=== PATIENT | female | born 1985 | race Caucasian/White ===

== ENCOUNTER 2017-08-03 15:03 | Emergency (ER) | payer OTHER ==
[~2017-08-03] VITALS: Ht 172.7 cm; Wt 104.3 kg
[2017-08-03] MEDS ORDERED: ONDANSETRON PF 4 MG/2 ML VIAL. IV ONE (15:30)
[2017-08-03] MEDS ORDERED: fentaNYL PF VIAL 100 MCG/2 ML VIAL IV ONE (15:30)
[2017-08-03] MEDS ORDERED: KETOROLAC 30 MG/ML INJ. IV ONE (15:30)
[2017-08-03] MEDS ORDERED: IV NORMAL SALINE 1000ML BAG 1,000 ML IV ONE (15:30)
--- NOTE | 2017-08-03 15:33 | PHYS DOC ---
Past Medical History Past Medical History: Migraines, Other Additional Past Medical Histor: 2 herniated lumbar discs Past Surgical History: No Surgical History Alcohol Use: None Drug Use: None Adult General Chief Complaint Chief Complaint: FLANK PAIN HPI HPI Patient is a 31 year old female presenting to the emergency department for evaluation of right flank pain relating to right upper quadrant that started suddenly at approximately noon. The patient says that the pain is sharp and causes her nausea but no vomiting dysuria hematuria diarrhea constipation vaginal bleeding or vaginal discharge. She denies ever being diagnosed with a kidney stone in the past but has had pain similar to this that went away on its own but did not see anyone for it. Patient appears uncomfortable but is nontoxic. Review of Systems Review of Systems Constitutional: Denies fever or chills [] Eyes: Denies change in visual acuity, redness, or eye pain [] HENT: Denies nasal congestion or sore throat [] Respiratory: Denies cough or shortness of breath [] Cardiovascular: No additional information not addressed in HPI [] GI: + abdominal pain, nausea. No vomiting, bloody stools or diarrhea [] : Denies dysuria or hematuria [] Musculoskeletal: + back pain. No joint pain [] Integument: Denies rash or skin lesions [] Neurologic: Denies headache, focal weakness or sensory changes [] Current Medications Current Medications Current Medications Medications (Trade) Dose Ordered Sig/Manuel Start Time Stop Time Status Last Admin Dose Admin Fentanyl Citrate (Fentanyl 2ml Vial) 75 mcg 1X ONCE 08/03/17 15:30 08/03/17 15:31 DC 08/03/17 15:44 75 MCG Ketorolac Tromethamine (Toradol) 30 mg 1X ONCE 08/03/17 15:30 08/03/17 15:31 DC 08/03/17 15:47 30 MG Ondansetron HCl (Zofran) 8 mg 1X ONCE 08/03/17 15:30 08/03/17 15:31 DC 08/03/17 15:42 8 MG Oxycodone/ Acetaminophen (Percocet 5/325) 2 tab 1X ONCE 08/03/17 18:45 08/03/17 18:46 DC Sodium Chloride 1,000 ml @ 1,000 mls/hr 1X ONCE 08/03/17 15:30 08/03/17 16:29 DC 08/03/17 15:40 1,000 MLS/HR Allergies Allergies Allergies Coded Allergies Type Severity Reaction Last Updated Verified Penicillins Allergy Intermediate RASH 08/03/17 Yes Sulfa (Sulfonamide Antibiotics) Allergy Intermediate RASH 08/03/17 Yes cephalexin Allergy Intermediate RASH 08/03/17 Yes Physical Exam Physical Exam Constitutional: Well developed, well nourished, no acute distress, non-toxic appearance. [] HENT: Normocephalic, atraumatic, bilateral external ears normal, oropharynx moist, no oral exudates, nose normal. [] Eyes: PERRLA, EOMI, conjunctiva normal, no discharge. [] Neck: Normal range of motion, no tenderness, supple, no stridor. [] Cardiovascular:Heart rate regular rhythm, no murmur [] Lungs & Thorax: Bilateral breath sounds clear to auscultation [] Abdomen: Bowel sounds normal, soft, + RUQ tenderness, no masses, no pulsatile masses. [] Skin: Warm, dry, no erythema, no rash. [] Back: No tenderness, + R CVA tenderness. [] Extremities: No tenderness, no cyanosis, no clubbing, ROM intact, no edema. [] Neurologic: Alert and oriented X 3, normal motor function, normal sensory function, no focal deficits noted. [] Current Patient Data Vital Signs Vital Signs Date Time Temp Pulse Resp B/P (MAP) Pulse Ox O2 Delivery O2 Flow Rate FiO2 08/03/17 17:00 68 17 133/83 (100) 99 Room Air 08/03/17 15:13 97.6 97.6 Lab Values Laboratory Tests Test 08/03/17 15:28 08/03/17 15:30 White Blood Count 10.1 x10^3/uL (4.0-11.0) Red Blood Count 4.83 x10^6/uL (3.50-5.40) Hemoglobin 15.2 g/dL (12.0-15.5) Hematocrit 43.9 % (36.0-47.0) Mean Corpuscular Volume 91 fL (79-100) Mean Corpuscular Hemoglobin 32 pg (25-35) Mean Corpuscular Hemoglobin Concent 35 g/dL (31-37) Red Cell Distribution Width 12.1 % (11.5-14.5) Platelet Count 306 x10^3/uL (140-400) Neutrophils (%) (Auto) 54 % (31-73) Lymphocytes (%) (Auto) 39 % (24-48) Monocytes (%) (Auto) 5 % (0-9) Eosinophils (%) (Auto) 2 % (0-3) Basophils (%) (Auto) 1 % (0-3) Neutrophils # (Auto) 5.4 x10^3uL (1.8-7.7) Lymphocytes # (Auto) 3.9 x10^3/uL (1.0-4.8) Monocytes # (Auto) 0.5 x10^3/uL (0.0-1.1) Eosinophils # (Auto) 0.2 x10^3/uL (0.0-0.7) Basophils # (Auto) 0.1 x10^3/uL (0.0-0.2) Urine Color Yellow Urine Clarity Clear Urine pH 6.0 Urine Specific [place] 1.015 Urine Protein Negative mg/dL (NEG-TRACE) Urine Glucose (UA) Negative mg/dL (NEG) Urine Ketones (Stick) Negative mg/dL (NEG) Urine Blood Negative (NEG) Urine Nitrite Negative (NEG) Urine Bilirubin Negative (NEG) Urine Urobilinogen Dipstick 0.2 mg/dL (0.2 mg/dL) Urine Leukocyte Esterase Negative (NEG) Urine RBC 0 /HPF (0-2) Urine WBC Occ /HPF (0-4) Urine Squamous Epithelial Cells Occ /LPF Urine Bacteria Few /HPF (0-FEW) Urine Mucus Mod /LPF Sodium Level 141 mmol/L (136-145) Potassium Level 4.1 mmol/L (3.5-5.1) Chloride Level 105 mmol/L (98-107) Carbon Dioxide Level 26 mmol/L (21-32) Anion Gap 10 (6-14) Blood Urea Nitrogen 17 mg/dL (7-20) Creatinine 1.0 mg/dL (0.6-1.0) Estimated GFR (Cockcroft-Gault) 65.1 BUN/Creatinine Ratio 17 (6-20) Glucose Level 141 mg/dL (70-99) H Calcium Level 9.2 mg/dL (8.5-10.1) Total Bilirubin 0.3 mg/dL (0.2-1.0) Aspartate Amino Transferase (AST) 25 U/L (15-37) Alanine Aminotransferase (ALT) 26 U/L (14-59) Alkaline Phosphatase 78 U/L (46-116) Total Protein 7.5 g/dL (6.4-8.2) Albumin 3.8 g/dL (3.4-5.0) Albumin/Globulin Ratio 1.0 (1.0-1.7) Lipase 480 U/L (73-393) H POC Urine HCG, Qualitative Hcg negative (Negative) Laboratory Tests 08/03/17 15:28 Laboratory Tests 08/03/17 15:28 EKG EKG [] Radiology/Procedures Radiology/Procedures Examination: CT of the abdomen pelvis without contrast History: history of sudden onset of flank pain Comparison: None available Technique: Axial CT images of the abdomen pelvis were performed without contrast. Coronal and sagittal reformats are performed PQRS Compliance Statement: One or more of the following individualized dose reduction techniques were utilized for this examination: 1. Automated exposure control 2. Adjustment of the mA and/or kV according to patient size 3. Use of iterative reconstruction technique Findings: The visualized bibasal lungs grossly appears unremarkable. No evidence of free air identified in the abdomen. The evaluation of the solid organs is limited due to lack of IV contrast. The evaluation of the the bowel is limited due to lack of oral contrast. The visualized noncontrasted liver, spleen, adrenals grossly appears unremarkable. The gallbladder is mildly distended. The stomach is mildly distended. The visualized pancreas grossly appears unremarkable. The small bowel is nondilated. The appendix is normal. Feces and gas noted throughout the colon. Urinary bladder is mildly distended. No evidence of intrarenal collecting system calculi or hydronephrosis. Circumaortic left renal vein. No evidence of lytic bony destructive lesion. Impression: 1. No evidence of intrarenal collecting system calculus or hydronephrosis. 2. Normal-appearing appendix. 3. Mildly distended gallbladder. DICTATED and SIGNED BY: ERICK MARKHAM MD DATE: 08/03/17 1603 ABDOMEN LTD dated 08/03/2017 5:39 PM. Comparison: None Clinical Indication: Right upper quadrant pain . Findings: The liver is homogeneous in echotexture with no evidence of focal hepatic mass. Intrahepatic and extra hepatic biliary ducts are normal in caliber. The common bile duct measures 4 mm. Echogenic shadowing foci within the gallbladder lumen. No gallbladder wall thickening or pericholecystic fluid. Right kidney measures 11.1 cm in length. No hydronephrosis. Left kidney was not imaged. Limited visualized portions of pancreas aorta and IVC unremarkable. No significant ascites. IMPRESSION: Cholelithiasis with no secondary signs of acute cholecystitis. Electronically signed by: Miguel Angel Pruett MD (08/03/2017 6:16 PM) [facility] DICTATED and SIGNED BY: MIGUEL ANGEL PRUETT MD DATE: 08/03/171809 Course & Med Decision Making Course & Med Decision Making Symptoms are likely a similar to a stone however she does have some right upper quadrant pain so we'll check liver enzymes as well get CT treat symptoms and reassess. CT essentially negative except for a distended gallbladder. Ultrasound showed gallbladder stones so essentially her pain is attributed to a biliary colic. Labs are all normal and her pain is much better with no nausea vomiting. I do not think that she needs emergent surgery at this point so will discharge with surgical consult pain and nausea medications told to return for worsening pain fevers vomiting or other general concerns. Patient aware and agreeable with plan and verbalized understanding of the above instructions. Dragon Disclaimer Dragon Disclaimer This electronic medical record was generated, in whole or in part, using a voice recognition dictation system. Departure Departure Impression: Primary Impression: Biliary colic Disposition: 01 HOME, SELF-CARE Condition: STABLE Referrals: MARCELINO HICKEY MD Patient Instructions: Biliary Colic Scripts Ondansetron (ZOFRAN ODT) 4 Mg Tab.rapdis 4 MG PO BID Y for NAUSEA/VOMITING, #14 TAB Prov: CHELSEY SHAW DO 08/03/17 Oxycodone/Apap 5-325 (PERCOCET 5-325 MG TABLET) 1 Each Tablet 1 TAB PO PRN Q6HRS Y for PAIN, #20 TAB 0 Refills Prov: CHELSEY SHAW DO 08/03/17 CHELSEY SHAW DO Aug 03, 2017 15:33
[2017-08-03 15:37] LABS: BASO # 0.1 x10^3/uL (0.0-0.2); BASO % 1 % (0-3); EOS % 2 % (0-3); HEMATOCRIT 43.9 % (36.0-47.0); HEMOGLOBIN 15.2 g/dL (12.0-15.5); LYMPH # 3.9 x10^3/uL (1.0-4.8); LYMPH % 39 % (24-48); MEAN CORPUSCULAR HEMOGLOBIN 32 pg (25-35); MEAN CORPUSCULAR HGB CONC 35 g/dL (31-37); MEAN CORPUSCULAR VOLUME 91 fL (79-100); MONO % 5 % (0-9); NEUT % 54 % (31-73); PLATELET COUNT 306 x10^3/uL (140-400); RED BLOOD COUNT 4.83 x10^6/uL (3.50-5.40); RED CELL DISTRIBUTION WIDTH 12.1 % (11.5-14.5); WHITE BLOOD COUNT 10.1 x10^3/uL (4.0-11.0)
[2017-08-03 15:39] LABS: BILIRUBIN,URINE NEGATIVE (NEG); GLUCOSE,URINE NEGATIVE (NEG); NITRITE,URINE NEGATIVE (NEG); PROTEIN,URINE NEGATIVE (NEG-TRACE); UROBILINOGEN,URINE 0.2 mg/dL (0.2 mg/dL)
[2017-08-03 15:50] LABS: CALCIUM 9.2 mg/dL (8.5-10.1); GFR 65.1; POTASSIUM 4.1 mmol/L (3.5-5.1)
[2017-08-03 15:56] LABS: ALBUMIN 3.8 g/dL (3.4-5.0); TOTAL BILIRUBIN 0.3 mg/dL (0.2-1.0); TOTAL PROTEIN 7.5 g/dL (6.4-8.2)
[2017-08-03 16:10] LABS: BACTERIA,URINE FEW /HPF (0-FEW); RBC,URINE 0 /HPF (0-2); SQUAMOUS EPITHELIAL CELL,UR OCC /LPF; WBC,URINE OCC /HPF (0-4)
--- NOTE | 2017-08-03 16:15 | RAD ---
Examination: CT of the abdomen pelvis without contrast History: history of sudden onset of flank pain Comparison: None available Technique: Axial CT images of the abdomen pelvis were performed without contrast. Coronal and sagittal reformats are performed RS Compliance Statement: One or more of the following individualized dose reduction techniques were utilized for this examination: 1. Automated exposure control 2. Adjustment of the mA and/or kV according to patient size 3. Use of iterative reconstruction technique Findings: The visualized bibasal lungs grossly appears unremarkable. No evidence of free air identified in the abdomen. The evaluation of the solid organs is limited due to lack of IV contrast. The evaluation of the the bowel is limited due to lack of oral contrast. The visualized noncontrasted liver, spleen, adrenals grossly appears unremarkable. The gallbladder is mildly distended. The stomach is mildly distended. The visualized pancreas grossly appears unremarkable. The small bowel is nondilated. The appendix is normal. Feces and gas noted throughout the colon. Urinary bladder is mildly distended. No evidence of intrarenal collecting system calculi or hydronephrosis. Circumaortic left renal vein. No evidence of lytic bony destructive lesion. Impression: 1. No evidence of intrarenal collecting system calculus or hydronephrosis. 2. Normal-appearing appendix. 3. Mildly distended gallbladder.
--- NOTE | 2017-08-03 18:19 | RAD ---
ABDOMEN LTD dated 08/03/2017 5:39 PM. Comparison: None Clinical Indication: Right upper quadrant pain . Findings: The liver is homogeneous in echotexture with no evidence of focal hepatic mass. Intrahepatic and extra hepatic biliary ducts are normal in caliber. The common bile duct measures 4 mm. Echogenic shadowing foci within the gallbladder lumen. No gallbladder wall thickening or pericholecystic fluid. Right kidney measures 11.1 cm in length. No hydronephrosis. Left kidney was not imaged. Limited visualized portions of pancreas aorta and IVC unremarkable. No significant ascites. IMPRESSION: Cholelithiasis with no secondary signs of acute cholecystitis. Electronically signed by: Miguel Angel Pruett MD (08/03/2017 6:16 PM) [facility]
[2017-08-03] MEDS ORDERED: oxyCODONE/APAP 5/325 1 TAB TABLET PO ONE (18:45)
[2017-08-03] MEDS ORDERED: ONDA4TAB10 PO (18:54)
[2017-08-03] MEDS ORDERED: OXYC-323 PO (18:54)
[2017-08-03 19:00] VITALS: BP 146/92
== END 2017-08-03 19:10 | disposition home or self-care (01) ==
LOC: ER 15:03
DX: K80.50 Calculus of bile duct without cholangitis or cholecystitis without obstruction (principal); G43.909 Migraine, unspecified, not intractable, without status migrainosus; Z98.890 Other specified postprocedural states; Z88.0 Allergy status to penicillin; Z88.1 Allergy status to other antibiotic agents; Z88.2 Allergy status to sulfonamides
CPT/HCPCS: 36415; 74176; 76705; 80053; 81001; 81025; 83690; 85025; 96361; 96374; 96375; 99285; J1885; J2405; J3010; J7030

== ENCOUNTER → 2017-09-05 | Day surgery (SDC) | payer OTHER ==
[~2017-09-05] VITALS: Ht 172.7 cm; Wt 103.9 kg
[~2017-09-05] MED LIST: BUPIVACAINE-EPI 0.25%-1:200000 MPF 30 ML VIAL. ONE; BUSP5TAB PO; DEXAMETHASONE SOD PHOS 20 MG/5 ML VIAL. ONE; FAMOTIDINE 20 MG/2 ML VIAL ONE; FLUO40CA9 PO; GABA-585 PO; GLYCOPYRROLATE 1 MG/5 ML VIAL. ONE; HYDROmorphone 2 MG/ML VIAL IV PRN; IOHEXOL 300 MG/ML 50 ML VIAL. ONE; IV RINGERS,LACTATED 1000ML 1,000 ML IV SCH; KETO10TA PO; KETOROLAC 30 MG/ML INJ FOR OR. INJ ONE; LEVO1TAB35 PO; LIDOCAINE 1% PF 2 ML VIAL. ID PRN; LIDOCAINE 2% PF Vial for OR 5 ML VIAL. ONE; MELATONIN PO; MIDAZOLAM HCL/PF 2 MG/2 ML VIAL. ONE; MORPHINE SULFATE 2 MG/ML DISP.SYRIN. IV PRN; MULT-130 PO; ONDA4TAB10 PO; ONDANSETRON PF 4 MG/2 ML VIAL. IV PRN; ONDANSETRON PF 4 MG/2 ML VIAL. ONE; OXYC-323 PO; PHENYLEPHRINE in 0.9% NACL PF 1 MG/10 ML DISP.SYRIN. IV ONE; PROCHLORPERAZINE 10 MG/2 ML VIAL. IV PRN; PROM12.56 PO; PROPOFOL 20 ML IV ONE; ROCURONIUM 100 MG/10 ML VIAL. ONE; SEVOFLURANE 31 TO 60 MINUTES. IH ONE; SUMA100T3 PO; SURGICEL HEMOSTAT 4X8 EACH. ONE; TIZA4TAB PO; TOPI50TA38 PO; TRAM50TA PO; fentaNYL PF VIAL 100 MCG/2 ML VIAL IV PRN; fentaNYL PF VIAL 100 MCG/2 ML VIAL ONE; oxyCODONE/APAP 5/325 1 TAB TABLET PO PRN
[2017-09-05 10:49] LABS: NEG OBC UR NEG; POS OBC UR POS
--- NOTE | 2017-09-05 13:24 | PDOC ---
BRIEF OPERATIVE NOTE Date: Sep 05, 2017 Pre-Op Diagnosis Chronic cholecystitis Post-Op Diagnosis Same Procedure Performed L/S Cholecystectomy Surgeon Sandeep Anesthesia Type: General Blood Loss 10ml Specimens Obtained Gallbladder Complications None MARCELINO HICKEY MD Sep 05, 2017 1:24 pm
--- NOTE | 2017-09-05 13:25 | DISCH ---
DISCHARGE INSTRUCTIONS Condition on Discharge Condition on Discharge: Stable Activity After Discharge Activity Instructions for Disc: Avoid exertion Other activity instructions: No lifting >20lbs for 2 weeks Diet after Discharge Diet after Discharge: Low Fat Wound Incision Care Other wound/incision instructi: May shower in 24 hours Contacting the after DC Call your doctor for: If your condition worsens Follow-Up Follow up with: Dr Hickey in 2 weeks MARCELINO HICKEY MD Sep 05, 2017 1:25 pm
[2017-09-05] MEDS: fentaNYL PF VIAL 100 MCG/2 ML VIAL IV PRN ×3 (13:33→13:52)
--- NOTE | 2017-09-05 13:42 | OP ---
DATE OF SURGERY: 09/05/2017 PREOPERATIVE DIAGNOSIS: Chronic cholecystitis. POSTOPERATIVE DIAGNOSIS: Chronic cholecystitis. PROCEDURE: Laparoscopic cholecystectomy. SURGEON: Bradford Hickey MD. INDICATIONS: The patient is a 31-year-old female who has had right upper quadrant abdominal pain, postprandial nausea and an ultrasound showing gallstones. The procedure of laparoscopic cholecystectomy was explained to the patient in detail. Risks, benefits were also discussed including bleeding, infection, injury to intra-abdominal contents, possibly necessitating further open operations. Alternatives to this procedure were also discussed with the patient who seemed to understand and gave verbal and written consent to have the procedure performed. DESCRIPTION OF PROCEDURE: The patient was taken to the operating room and placed in the supine position, general anesthesia was initiated. Once the patient was asleep and intubated, her abdomen was prepped and draped in usual sterile fashion using ChloraPrep. An area just below the umbilicus injected with 0.25% Marcaine with epinephrine. Incision was made with an 11 blade scalpel, and a Veress needle was placed within the abdomen. Pneumoperitoneum was achieved. Once this was complete, an 11 mm port was placed, and a 5 mm camera was placed within the abdomen. Abdomen was inspected, no other abnormalities were noted. Three 5 mm ports were then placed under direct visualization, one in the epigastrium, 2 in the right upper quadrant. The dome of the gallbladder was grasped and retracted cephalad. The infundibulum of the gallbladder was grasped and retracted laterally exposing the triangle of Calot. Adherent tissues of the triangle were taken down with blunt dissection, so was exposing the cystic duct and cystic artery. Both were doubly clipped and transected. The gallbladder was taken off the liver with hook electrocautery, placed in EndoCatch bag and removed from the umbilicus. Right upper quadrant was irrigated and suctioned dry. Hemostasis seemed to be appropriate. The pneumoperitoneum was reduced. All ports were removed. Fascial defect at the umbilicus closed with [id number] Vicryl suture, and the skin was reapproximated at all port sites with 4-0 subcuticular Monocryl. Mastisol, Steri-Strips and Band-Aids were applied as dressings. The patient was awakened, extubated in the operating room, taken to recovery in stable condition. All sponge, instrument and needle counts listed as correct. Estimated blood loss 10 mL. BRADFORD HICKEY MD DR: SUSAN/jcarlos JOB#: [id number] / [id number]
[2017-09-05 14:24] VITALS: BP 114/67
--- NOTE | 2017-09-06 14:25 | PATHOLOGY ---
PATHOLOGY REPORT * * * * * * * * FINAL DIAGNOSIS: Gallbladder, laparoscopic cholecystectomy: - Cholelithiasis. - Cholesterolosis. - Chronic cholecystitis. COMMENT: There is no evidence of malignancy. (JPM:db; 09/06/2017) REPORT ELECTRONICALLY SIGNED BY: Black Zarco M.D. DATE/TIME: 09/06/2017 14:23 * * * * * * * * GROSS PATHOLOGY: Received in formalin labeled "Janelle Wells, gallbladder and contents," is an 8.1 x 2.6 x 2.3 cm, intact gallbladder with light pinkbluish, slightly vascular serosal surfaces. Opening the gallbladder reveals a green, velvety mucosa, rippled with yellow highlights, and an average wall thickness of 0.1 cm. Calculi are present, measuring 0.2-1.9 cm in maximum dimension, possessing a light yellow and granular appearance, and feeling friable to the touch. No masses are noted grossly. Medical Imaging Technologist sections from the body and fundus are submitted along with the proximal margin in cassette A1. (TSD; 09/05/2017) INITIAL CPT CODE(S): A; 28176 Professional services performed by [facility] [place] [address] Technical services performed by [facility] at [address] [place] [address], [facility] [address], [place] [address]. SPECIMEN(S) RECEIVED: A.Gallbladder and contents CLINICAL HISTORY: Cholelithiasis, cholecystitis PATIENT: JANELLE WELLS /AGE: 1211/09/1985 (Age: 31) PATIENT #: [id number] ALT CASE #: SPECIMEN COLLECTION DATE: 09/05/2017 SPECIMEN RECEIVED DATE: 09/05/2017 [facility] - [id number] [place] [address] - PHONE: [phone] * * * END OF REPORT * * *
== END | disposition home or self-care (01) ==
LOC: SURG 09:57
PROVIDERS: ATTEND Surgery
DX: K80.10 Calculus of gallbladder with chronic cholecystitis without obstruction (principal); K82.4 Cholesterolosis of gallbladder; Z86.69 Personal history of other diseases of the nervous system and sense organs; E66.9 Obesity, unspecified; Z68.34 Body mass index [BMI] 34.0-34.9, adult; K21.9 Gastro-esophageal reflux disease without esophagitis; Z87.440 Personal history of urinary (tract) infections; Z87.39 Personal history of other diseases of the musculoskeletal system and connective tissue; F41.9 Anxiety disorder, unspecified; F32.9 Major depressive disorder, single episode, unspecified; Z88.1 Allergy status to other antibiotic agents; Z88.0 Allergy status to penicillin; Z88.2 Allergy status to sulfonamides
CPT/HCPCS: 47562; 81025; J0780; J1100; J1885; J1956; J2250; J2370; J2405; J2704; J3010; J3490; J7030; S0028; 88304; Q9967; J2001